=== PATIENT | male | born 1965 | race African-American/Black ===

== ENCOUNTER 2019-11-22 12:56 | Inpatient (IN) | payer OTHER ==
[2019-11-22] MEDS ORDERED: NS 0.9% 1000 ML** 1,000 ML IV ONE ×2 (15:12→18:53)
--- NOTE | 2019-11-22 15:13 | ED ---
GI/ HPI - HPI Summary HPI Summary: Patient from alf complains of right-sided abdominal pain 1 month. Abdominal pain described as constant, achy. Pain worse with eating certain foods , and worse in the middle the night. 4 episodes of vomiting yesterday. States no BM since starting iron supplements on Friday. Denies fever, cough, sore throat, CP, SOB, change in urine. Patient states they did labs at the alf clinic and sent him here for further evaluation of blood positive stool and low hemoglobin. Medical history is anemia, left BTK amputation. Ferrous Sulfate TAB* 325 mg PO BID 11/22/19 [History Confirmed 11/22/19] Omeprazole (Nf) [Prilosec (NF)] 40 mg PO DAILY 11/22/19 [History Confirmed 11/22] - History of Current Complaint Chief Complaint: EDGIBleed Time Seen by Provider: 11/22/19 15:07 Stated Complaint: BLOOD IN STOOL PER PT Hx Obtained From: Patient Onset/Duration: Started Weeks Ago Timing: Constant Severity: Moderate Current Severity: Moderate Pain Intensity: 7 Location of Pain: RUQ, RLQ Pain Characteristics: Dull, Cramping Associated Signs and Symptoms: Positive: Nausea, Vomiting, Black Tarry Stool, Blood w/Stool, Abdominal Pain - Allergy/Home Medications Allergies/Adverse Reactions: Allergies Allergy/AdvReac Type Severity Reaction Status Date / Time No Known Allergies Allergy Verified 11/22/19 13:16 Home Medications: Home Medications Ferrous Sulfate TAB* 325 mg PO BID 11/22/19 [History Confirmed 11/22/19] Omeprazole (Nf) [Prilosec (NF)] 40 mg PO DAILY 11/22/19 [History Confirmed 11/22] PMH/Surg Hx/FS Hx/Imm Hx Endocrine/Hematology History: Denies: Hx Anticoagulant Therapy Cardiovascular History: Denies: Hx Pacemaker/ICD Sensory History: Denies: Hx Eye Prosthesis Opthamlomology History: Denies: Hx Legally Blind EENT History: Denies: Hx Deafness Neurological History: Denies: Hx Dementia Infectious Disease History: No Infectious Disease History: Denies: Traveled Outside the [place] in Last 30 Days - Family History Known Family History: Positive: Non-Contributory - Social History Alcohol Use: None Substance Use Type: Reports: None Smoking Status (MU): Light Every Day Tobacco Smoker Review of Systems Constitutional: Negative Eyes: Negative ENT: Negative Cardiovascular: Negative Respiratory: Negative Positive: Abdominal Pain, Vomiting, Nausea Genitourinary: Negative Musculoskeletal: Negative Skin: Negative Neurological/Mental Status: Negative Psychological: Normal All Other Systems Reviewed And Are Negative: Yes Physical Exam - Summary Physical Exam Summary: Tender in epigastric, right upper quadrant and right lower quadrant. Abdominal exam otherwise unremarkable. Triage Information Reviewed: Yes Vital Signs On Initial Exam: Initial Vitals Temp Pulse Resp BP Pulse Ox 100.6 F 111 19 132/69 96 11/22/19 13:13 11/22/19 13:13 11/22/19 13:13 11/22/19 13:13 11/22/19 13:13 Vital Signs Reviewed: Yes Appearance: Positive: Well-Appearing Skin: Positive: Warm Head/Face: Positive: Normal Head/Face Inspection Eyes: Positive: Normal Neck: Positive: Supple Respiratory/Lung Sounds: Positive: Clear to Auscultation Cardiovascular: Positive: Normal Abdomen Description: Positive: Other: Musculoskeletal: Positive: Normal Neurological: Positive: Normal Psychiatric: Positive: Normal AVPU Assessment: Alert - [place] Coma Scale Best Eye Response: 4 - Spontaneous Best Motor Response: 6 - Obeys Commands Best Verbal Response: 5 - Oriented Coma Scale Total: 15 Procedures - Sedation Patient Received Moderate/Deep Sedation with Procedure: No Diagnostics - Vital Signs Vital Signs Temp Pulse Resp BP Pulse Ox 11/22/19 13:13 100.6 F 111 19 132/69 96 - Laboratory Result Diagrams: 11/23/19 05:23 11/23/19 05:23 Lab Statement: Any lab studies that have been ordered have been reviewed, and results considered in the medical decision making process. GIGU Course/Dx - Course Course Of Treatment: Patient from alf complains of right-sided abdominal pain 1 month. Abdominal pain described as constant, achy. Pain worse with eating certain foods, and worse in the middle the night. 4 episodes of vomiting yesterday. States no BM since starting iron supplements on Friday. Denies fever, cough, sore throat, CP, SOB, change in urine. Patient states they did labs at the alf clinic and sent him here for further evaluation of blood positive stool and low hemoglobin. Medical history is anemia, left BTK amputation. Temp 100.6 initially. Normal temperature on recheck. Mildly tachycardic. Vital signs otherwise within normal limits. WBC 23.4. Hemoglobin 7.8. CRP 276. Complete abdominal ultrasound on 11/19/[address] abdomen and pelvis today positive for masslike wall thickening and fat stranding involving the descending colon and cecum but sparing of the cecal tip, with region of masslike thickening measuring up to 4.1 cm thickness. Possibilities include proximal colonic malignancy versus nonspecific severe colitis. Prominent lymph nodes in the right lower quadrant suspicious for mesenteric adenitis. Patient admitted to hospitalist. - Diagnoses Provider Diagnoses: Anemia, Mass of colon, Sepsis, Abdominal pain, GI bleed Discharge ED - Sign-Out/Discharge Documenting (check all that apply): Patient Departure - Discharge Plan Condition: Stable Disposition: ADMITTED TO [facility] - Billing Disposition and Condition Condition: STABLE Disposition: Admitted to [facility] - Attestation Statements Provider Attestation: I have seen the patient with the DARREN and agree with the plan and documentation below except as noted: 54 y/o male p/w abdominal pain and rectal bleeding found to have a possible new mass vs colitis. Given zpsyn, needs GI consult. Lashanda Stroud MD
[2019-11-22] MEDS ORDERED: Ondansetron INJ* 2 MG/ML VIAL IV ONE ×2 (15:22→19:45)
[2019-11-22 16:01] LABS: INR 1.47 (0.82-1.09)
[2019-11-22 16:16] LABS: ABS Basophils 0.1 10^3/ul (0-0.2); ABS Eosinophils 0.1 10^3/ul (0-0.6); ABS Lymphocytes 2.1 10^3/ul (1.0-4.8); ABS Monocytes 1.1 10^3/ul (0-0.8); ABS Neutrophils 19.9 10^3/ul (1.5-7.7); Eosinophil % 0.5 %; Hematocrit 26 % (42-52); Hemoglobin 7.8 g/dL (14.0-18.0); Lymphocyte % 9.1 %; Mean Corpuscular HGB Conc 31 g/dL (31-36); Mean Corpuscular Hemoglobin 20 pg (27-31); Mean Corpuscular Volume 66 fL (80-94); Mean Platelet Volume 6.6 fL (7.4-10.4); Platelet Count 669 10^3/uL (150-450); Red Blood Count 3.86 10^6 /uL (4.18-5.48); Red Cell Distribution Width 16 % (10-15); White Blood Count 23.4 10^3/uL (3.5-10.8)
[2019-11-22 16:43] LABS: ALT 9 U/L (7-52); AST 10 U/L (13-39); Albumin 4.1 g/dL (3.2-5.2); Albumin/Globulin Ratio 1.1 (1-3); Alkaline Phosphatase 66 U/L (34-104); Anion Gap 10 mmol/L (2-11); BUN/Creatinine Ratio 13.6 (8-20); Blood Urea Nitrogen 15 mg/dL (6-24); C Reactive Protein 276.66 mg/L (<8.01); CO2 Carbon Dioxide 23 mmol/L (22-32); Calcium 9.4 mg/dL (8.6-10.3); Chloride 102 mmol/L (101-111); EGFR African American 84.7 (>60); Globulin 3.6 g/dL (2-4); Glucose 102 mg/dL (70-100); Potassium 3.7 mmol/L (3.5-5.0); Sodium 135 mmol/L (135-145); Total Protein 7.7 g/dL (6.4-8.9)
[2019-11-22] MEDS ORDERED: Iohexol 300* (CONTRAST) 10 ML SDV IV ONE (17:42)
[2019-11-22 17:52] LABS: Urine Appearance Clear; Urine Bilirubin Negative (Negative); Urine Blood Negative (Negative); Urine Color Yellow; Urine Glucose Negative (Negative); Urine Ketones Negative (Negative); Urine Nitrite Negative (Negative); Urine Protein Negative (Negative); Urine Specific Gravity 1.012 (1.010-1.030); Urine Urobilinogen Negative (Negative)
[2019-11-22] MEDS ORDERED: Piperacillin/Tazobactam VIAL*) 3.375 GM in NS 0.9% 100 ML* 100 ML IVPB ONE (18:51)
[2019-11-22] MEDS ORDERED: NS 0.9% 100 ML* 100 ML ONE (18:59)
[2019-11-22] MEDS ORDERED: ZOSYN 3.375 GM x ONE DOSE over 30 miuntes IVPB ×2 (19:05)
[2019-11-22] MEDS ORDERED: Ondansetron INJ* 2 MG/ML VIAL IV PRN (19:34)
[2019-11-22] MEDS ORDERED: PEG 3000 GI LAVAGE* 1 GALLON PO ONE ×2 (19:38→22:30)
[2019-11-22] MEDS ORDERED: Polyethylene Glycol 3350 BTL* 238 GM BTL PO ONE (19:38)
[2019-11-22] MEDS ORDERED: Morphine 4 MG/ML VIAL (1 ml) 4 MG/ML VIAL IV ONE (19:45)
[2019-11-22] MEDS ORDERED: Phytonadione Oral Solution* 5 MG/25 ML UDC PO ONE (19:48)
[2019-11-22] MEDS ORDERED: Zosyn per Pharmacy* NOTE FOLLOW UP SCH (20:00)
[2019-11-22] MEDS: NS 0.9% 1000 ML** 1,000 ML IV SCH (21:47)
[2019-11-22 22:02] LABS: Hematocrit 21 % (42-52); Hemoglobin 6.6 g/dL (14.0-18.0)
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
[2019-11-22] MEDS: ZOSYN 3.375 GM Q8H per EXTENDED INFUSION IVPB SCH ×2 (23:18)
[2019-11-22] MEDS: oxyCODONE TAB* 5 MG TAB PO PRN (23:22)
[2019-11-23 05:32] LABS: ABS Basophils 0.1 10^3/ul (0-0.2); ABS Eosinophils 0.3 10^3/ul (0-0.6); ABS Lymphocytes 2.4 10^3/ul (1.0-4.8); ABS Monocytes 1.5 10^3/ul (0-0.8); ABS Neutrophils 14.4 10^3/ul (1.5-7.7); Eosinophil % 1.5 %; Hematocrit 23 % (42-52); Lymphocyte % 12.8 %; Mean Corpuscular HGB Conc 31 g/dL (31-36); Mean Corpuscular Hemoglobin 21 pg (27-31); Mean Corpuscular Volume 68 fL (80-94); Mean Platelet Volume 6.3 fL (7.4-10.4); Platelet Count 596 10^3/uL (150-450); Red Blood Count 3.37 10^6 /uL (4.18-5.48); Red Cell Distribution Width 18 % (10-15); White Blood Count 18.7 10^3/uL (3.5-10.8)
[2019-11-23 05:34] LABS: INR 1.33 (0.82-1.09)
[2019-11-23 05:44] LABS: BUN/Creatinine Ratio 10.5 (8-20); EGFR African American 81.3 (>60); EGFR Non-African American 67.2 (>60); Magnesium 2.1 mg/dL (1.9-2.7)
[2019-11-23] MEDS: NS 0.9% 1000 ML** 1,000 ML IV SCH ×2 (07:58→20:38)
[2019-11-23] MEDS: ZOSYN 3.375 GM Q8H per EXTENDED INFUSION IVPB SCH ×4 (07:58→17:02)
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
[2019-11-23] MEDS: Pantoprazole TAB * 40 MG TAB PO SCH (08:22)
[2019-11-23] MEDS: oxyCODONE TAB* 5 MG TAB PO PRN ×2 (08:23→18:35)
[2019-11-23] MEDS ORDERED: PEG 3000 GI LAVAGE* 1 GALLON PO ONE (09:06)
[2019-11-23 12:37] LABS: Hematocrit 25 % (42-52); Hemoglobin 7.6 g/dL (14.0-18.0)
[2019-11-23] MEDS ORDERED: fentaNYL* 50 MCG/ML 2 ML VIAL (100 MCG VIAL) ONE (14:57)
[2019-11-23] MEDS ORDERED: Midazolam* 1 MG/ML 10 ML VIAL (10 MG) ONE (14:57)
[2019-11-23 18:34] LABS: Hematocrit 23 % (42-52); Hemoglobin 7.4 g/dL (14.0-18.0)
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
[2019-11-24] MEDS: ZOSYN 3.375 GM Q8H per EXTENDED INFUSION IVPB SCH ×8 (00:30→23:42)
[2019-11-24 01:23] LABS: Hematocrit 24 % (42-52); Hemoglobin 7.5 g/dL (14.0-18.0)
[2019-11-24] MEDS: Acetaminophen TAB* 325 MG PO PRN ×4 (01:26→23:41)
--- NOTE | 2019-11-24 03:00 | PRO ---
DATE: 11/23/19 - ROOM #431 REFERRING PHYSICIAN: Rashida Gutierrez; Ivis Johnson, JC, drug treatment * PROCEDURE: Colonoscopy to right colon and biopsy of ulcerated mass. INDICATION: This 54-year-old man has had abdominal pain and was found to be anemic. He was placed on iron a week or 2 ago. He has been obstipated. When he came to the emergency room, CT scan did not show obstruction; therefore, he was given doses of MiraLAX and they did have a laxative effect without vomiting , and thus, he was given more of a prep. He has stabilized in that his vital signs have been good and his temperature has normalized. Informed consent was obtained, discussion with the patient describing him moderate sedation and the priority of obtaining more information. ENDOSCOPIST: Dr. Bower. MEDICATIONS: Midazolam 6, fentanyl 62.5. FINDINGS: He is a fit-appearing middle-aged man, in no overt distress, lying supine. He has sternotomy scar and a left BKA. His abdomen has normal bowel sounds. He was tender on the right side, but there was no rigidity or surgical change. He was positioned left side down and moderate sedation induced. Perianal inspection and rectal are normal. Initial views show an excellent prep and normal mucosa. Scope passed easily to about 30 to 35 cm, and then with pressure on the mesentery, there was some discomfort felt by the patient. Additional doses were given. Gentle back and forth, to and fro advancement with tip deflection was used and eventually some transverse lift from the nurse. The right colon was reached and there was an ulcerated mass. There was dark staining of mucus and this was presumably due to iron intake. The lumen was narrowed. The scope could not pass down the lumen, but a clear ulcerated area circumferentially was seen. Multiple biopsies were taken trying to sample the rolled edge of the mass and some of the ulcerated surface. Nine specimens were obtained. On slow withdrawal, there were no additional findings. IMPRESSION: Right colon mass - 99% likely to be a malignancy, the only question being the tissue type. Addendum: poorly diff adenocarcinoma [id number]/[facility] #: [id number] MTDD
[2019-11-24] MEDS: oxyCODONE TAB* 5 MG TAB PO PRN ×2 (05:06→20:10)
[2019-11-24 06:24] LABS: Hematocrit 22 % (42-52); Hemoglobin 7.1 g/dL (14.0-18.0)
[2019-11-24] MEDS: NS 0.9% 1000 ML** 1,000 ML IV SCH (07:59)
[2019-11-24] MEDS: Pantoprazole TAB * 40 MG TAB PO SCH (08:05)
[2019-11-24 10:13] LABS: ABS Basophils 0.1 10^3/ul (0-0.2); ABS Eosinophils 0.4 10^3/ul (0-0.6); ABS Lymphocytes 2.1 10^3/ul (1.0-4.8); ABS Monocytes 0.9 10^3/ul (0-0.8); ABS Neutrophils 7.4 10^3/ul (1.5-7.7); Eosinophil % 3.8 %; Hematocrit 25 % (42-52); Hemoglobin 7.8 g/dL (14.0-18.0); Lymphocyte % 19.6 %; Mean Corpuscular HGB Conc 31 g/dL (31-36); Mean Corpuscular Hemoglobin 21 pg (27-31); Mean Corpuscular Volume 68 fL (80-94); Mean Platelet Volume 6.6 fL (7.4-10.4); Nucleated Red Blood Cells % 0.1; Platelet Count 681 10^3/uL (150-450); Red Blood Count 3.71 10^6 /uL (4.18-5.48); Red Cell Distribution Width 18 % (10-15); White Blood Count 10.8 10^3/uL (3.5-10.8)
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
[2019-11-24 11:34] LABS: % Iron Saturation 8 % (15-55); Iron < 20 ug/dL (50-212); Total Iron Binding Capacity 252 mcg/dL (250-450); Transferrin 180 mg/dL (203-362)
[2019-11-24 11:46] LABS: Carcinoembryonic Antigen 1.1 ng/mL (0.1-5.0)
[2019-11-24 11:53] LABS: Ferritin 46.1 ng/mL (24-336)
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
[2019-11-25 05:37] LABS: ABS Basophils 0.1 10^3/ul (0-0.2); ABS Eosinophils 0.4 10^3/ul (0-0.6); ABS Lymphocytes 2.4 10^3/ul (1.0-4.8); ABS Monocytes 0.6 10^3/ul (0-0.8); ABS Neutrophils 5.5 10^3/ul (1.5-7.7); Eosinophil % 4.7 %; Hematocrit 25 % (42-52); Hemoglobin 7.8 g/dL (14.0-18.0); Lymphocyte % 26.6 %; Mean Corpuscular HGB Conc 31 g/dL (31-36); Mean Corpuscular Hemoglobin 21 pg (27-31); Mean Corpuscular Volume 68 fL (80-94); Mean Platelet Volume 6.7 fL (7.4-10.4); Nucleated Red Blood Cells % 0.1; Platelet Count 656 10^3/uL (150-450); Red Blood Count 3.67 10^6 /uL (4.18-5.48); Red Cell Distribution Width 18 % (10-15); White Blood Count 9.1 10^3/uL (3.5-10.8)
[2019-11-25 06:39] LABS: Calcium 8.6 mg/dL (8.6-10.3); Potassium 3.7 mmol/L (3.5-5.0)
[2019-11-25 06:44] LABS: BUN/Creatinine Ratio 4.5 (8-20); EGFR African American 83.8 (>60); EGFR Non-African American 69.3 (>60)
[2019-11-25] MEDS: ZOSYN 3.375 GM Q8H per EXTENDED INFUSION IVPB SCH ×6 (08:24→23:05)
[2019-11-25] MEDS: Pantoprazole TAB * 40 MG TAB PO SCH (08:24)
--- NOTE | 2019-11-25 08:54 | CONSULT ---
Consult Consult: Patient seen and examined on 11/24/2019. DARREN note reviewed and I agree with. I discussed the case with the primary service. Greater than 3 month history of melena and intermittent abdominal pain. Workup since admission consistent with ascending colon cancer with inflammation , possible perforation. Pain relieved with narcotics. Patient is on Zosyn. Pathology pending. Abdomen : soft, nondistended, tender on the RIGHT with fullness. Small umbilical hernia. CT scan and colonoscopy reviewed. Impression: ascending colon cancer with possible perforation. Pathology pending, and likely consistent with adenocarcinoma. recommendation: Open RIGHT hemicolectomy. Continue clear fluids for now. will possibly not need bowel prep, but I do recommend oral antibiotics. Case was discussed my partner who will likely be doing it on Friday hopefully after pathology is resulted. I discussed all this with the patient who is comfortable with my examination and his questions were answered. Overall, 30 minutes were spent with patient, over half of which included going over our plan.
--- NOTE | 2019-11-25 09:22 | PN ---
Progress Note - Progress Note Date of Service: 11/25/19 SOAP: Subjective: Intermittent right sided abdominal pain CEA normal Labs c/w iron deficiency Pathology pending Objective: Alert and conversant Neuro grossly nonfocal Ice pack on abdomen Vital Signs - 8 hr 11/25/19 11/25/19 11/25/19 03:15 07:15 08:00 Temperature 97 F 98.7 F Pulse Rate 76 71 Respiratory 16 18 16 Rate Blood Pressure 113/73 111/74 (mmHg) O2 Sat by Pulse 99 98 Oximetry Laboratory Results - last 24 hr 11/24/19 11/24/19 11/25/19 05:54 09:42 05:12 WBC 10.8 9.1 RBC 3.71 L 3.67 L Hgb 7.8 L 7.8 L Hct 25 L 25 L MCV 68 L 68 L MCH 21 L 21 L MCHC 31 31 RDW 18 H 18 H Plt Count 681 H D 656 H MPV 6.6 L 6.7 L Neut % (Auto) 68.0 60.2 Lymph % (Auto) 19.6 26.6 [place] % (Auto) 7.9 7.0 Eos % (Auto) 3.8 4.7 Baso % (Auto) 0.7 1.5 Absolute Neuts (auto) 7.4 5.5 Absolute Lymphs (auto) 2.1 2.4 Absolute Monos (auto) 0.9 H 0.6 Absolute Eos (auto) 0.4 0.4 Absolute Basos (auto) 0.1 0.1 Absolute Nucleated RBC 0.0 0.0 Nucleated RBC % 0.1 0.1 Sodium Potassium Chloride Carbon Dioxide Anion Gap BUN Creatinine Est GFR ( Amer) Est GFR (Non-Af Amer) BUN/Creatinine Ratio Glucose Calcium Iron < 20 L TIBC 252 % Saturation 8 L Unsat Iron Binding < 237 Transferrin 180 L Ferritin 46.1 Carcinoembryonic Ag 1.1 11/25/19 05:12 WBC RBC Hgb Hct MCV MCH MCHC RDW Plt Count MPV Neut % (Auto) Lymph % (Auto) [place] % (Auto) Eos % (Auto) Baso % (Auto) Absolute Neuts (auto) Absolute Lymphs (auto) Absolute Monos (auto) Absolute Eos (auto) Absolute Basos (auto) Absolute Nucleated RBC Nucleated RBC % Sodium 139 Potassium 3.7 Chloride 107 Carbon Dioxide 24 Anion Gap 8 BUN 5 L Creatinine 1.11 Est GFR ( Amer) 83.8 Est GFR (Non-Af Amer) 69.3 BUN/Creatinine Ratio 4.5 L Glucose 96 Calcium 8.6 Iron TIBC % Saturation Unsat Iron Binding Transferrin Ferritin Carcinoembryonic Ag Intake and Output Last 24 Hours 11/23/19 11/24/19 11/25/19 11/26/19 06:59 06:59 06:59 06:59 Intake Total 3035 4631 1753 400 Output Total 0 2275 3250 600 Balance 3035 2356 -1497 -200 Weight 176 lb Intake: IV Fluids 2200 3091 593 ABX - AZITHROMYCIN 100 289 NS (0.9%) 2802 593 IVPB 521 200 ABX - ZOSYN 200 NS (0.9%) 521 Oral 0 1540 960 400 Packed Cells 314 Output: Urine 0 2275 3250 600 Other: Date of Last Bowel 11/23/2019 Movement # Voids 3 Acetaminophen (Tylenol Tab*) 650 mg PO Q6H PRN PRN Reason: MILD PAIN or TEMP > 100.4 Last Admin: 11/24/19 23:41 Dose: 650 mg Piperacillin Sod/Tazobactam (Sod 3.375 gm/ Sodium Chloride) 100 mls @ 25 mls/ hr IVPB Q8H [facility] Last Admin: 11/25/19 08:24 Dose: 25 mls/hr Metronidazole (Flagyl) 500 mg PO 1300,1400,2300 [facility] Stop: 11/25/19 23:01 Neomycin Sulfate (Neomycin Tab*) 1,000 mg PO 1300,1400,2300 [facility] Stop: 11/25/19 23:01 Ondansetron HCl (Zofran Inj*) 4 mg IV Q6H PRN PRN Reason: NAUSEA Oxycodone HCl (Roxycodone Tab*) 5 mg PO Q8H PRN PRN Reason: PAIN - SEVERE Last Admin: 11/24/19 20:10 Dose: 5 mg Pantoprazole Sodium (Protonix Tab*) 40 mg PO DAILY [facility] Last Admin: 11/25/19 08:24 Dose: 40 mg Pharmacy Consult (Zosyn Per Pharmacy*) 1 note FOLLOW UP .ZOSYN PER PHARMACY [facility] Assessment: Suspected right sided colon cancer Possible superimposed infection Iron deficiency anemia Abdominal pain secondary to #1 Plan: Await Pathology Surgery has evaluated Possible surgery tomorrow Will follow
[2019-11-25] MEDS: oxyCODONE TAB* 5 MG TAB PO PRN ×2 (11:01→20:56)
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
--- NOTE | 2019-11-25 12:15 | PN ---
Progress Note - Progress Note Date of Service: 11/25/19 Note: Subjective: Pt reports he is feeling well. No BM since bowel prep for colonoscopy. Denies nausea, emesis, fever, chills. Confirms right sided abdominal pain that he feels upon movement and palpation. Objective: Vital Signs - 8 hr 11/25/19 11/25/19 11/25/19 07:15 08:00 11:01 Temperature 98.7 F Pulse Rate 71 Respiratory 18 16 18 Rate Blood Pressure 111/74 (mmHg) O2 Sat by Pulse 98 Oximetry 11/25/19 11:15 Temperature 98.7 F Pulse Rate 78 Respiratory 18 Rate Blood Pressure 115/71 (mmHg) O2 Sat by Pulse 100 Oximetry Intake and Output Last 24 Hours 11/23/19 11/24/19 11/25/19 11/26/19 06:59 06:59 06:59 06:59 Intake Total 3035 4631 1753 400 Output Total 0 2275 3250 600 Balance 3035 2356 -1497 -200 Weight 176 lb Intake: IV Fluids 2200 3091 593 ABX - AZITHROMYCIN 100 289 NS (0.9%) 2802 593 IVPB 521 200 ABX - ZOSYN 200 NS (0.9%) 521 Oral 0 1540 960 400 Packed Cells 314 Output: Urine 0 2275 3250 600 Other: Date of Last Bowel 11/23/2019 Movement # Voids 3 Laboratory Last Values WBC 9.1 10^3/uL (3.5-10.8) 11/25/19 05:12 RBC 3.67 10^6 /uL (4.18-5.48) L 11/25/19 05:12 Hgb 7.8 g/dL (14.0-18.0) L 11/25/19 05:12 Hct 25 % (42-52) L 11/25/19 05:12 MCV 68 fL (80-94) L 11/25/19 05:12 MCH 21 pg (27-31) L 11/25/19 05:12 MCHC 31 g/dL (31-36) 11/25/19 05:12 RDW 18 % (10-15) H 11/25/19 05:12 Plt Count 656 10^3/uL (150-450) H 11/25/19 05:12 MPV 6.7 fL (7.4-10.4) L 11/25/19 05:12 Neut % (Auto) 60.2 % 11/25/19 05:12 Lymph % (Auto) 26.6 % 11/25/19 05:12 [place] % (Auto) 7.0 % 11/25/19 05:12 Eos % (Auto) 4.7 % 11/25/19 05:12 Baso % (Auto) 1.5 % 11/25/19 05:12 Absolute Neuts (auto) 5.5 10^3/ul (1.5-7.7) 11/25/19 05:12 Absolute Lymphs (auto) 2.4 10^3/ul (1.0-4.8) 11/25/19 05:12 Absolute Monos (auto) 0.6 10^3/ul (0-0.8) 11/25/19 05:12 Absolute Eos (auto) 0.4 10^3/ul (0-0.6) 11/25/19 05:12 Absolute Basos (auto) 0.1 10^3/ul (0-0.2) 11/25/19 05:12 Absolute Nucleated RBC 0.0 10^3/ul 11/25/19 05:12 Nucleated RBC % 0.1 11/25/19 05:12 Hem Pathologist Commnt 11/22/19 15:46 INR (Anticoag Therapy) 1.33 (0.82-1.09) H 11/23/19 05:23 Sodium 139 mmol/L (135-145) 11/25/19 05:12 Potassium 3.7 mmol/L (3.5-5.0) 11/25/19 05:12 Chloride 107 mmol/L (101-111) 11/25/19 05:12 Carbon Dioxide 24 mmol/L (22-32) 11/25/19 05:12 Anion Gap 8 mmol/L (2-11) 11/25/19 05:12 BUN 5 mg/dL (6-24) L 11/25/19 05:12 Creatinine 1.11 mg/dL (0.67-1.17) 11/25/19 05:12 Est GFR ( Amer) 83.8 (>60) 11/25/19 05:12 Est GFR (Non-Af Amer) 69.3 (>60) 11/25/19 05:12 BUN/Creatinine Ratio 4.5 (8-20) L 11/25/19 05:12 Glucose 96 mg/dL (70-100) 11/25/19 05:12 Lactic Acid 1.5 mmol/L (0.5-2.0) 11/22/19 15:46 Calcium 8.6 mg/dL (8.6-10.3) 11/25/19 05:12 Magnesium 2.1 mg/dL (1.9-2.7) 11/23/19 05:23 Iron < 20 ug/dL (50-212) L 11/24/19 05:54 TIBC 252 mcg/dL (250-450) 11/24/19 05:54 % Saturation 8 % (15-55) L 11/24/19 05:54 Unsat Iron Binding < 237 ug/dL 11/24/19 05:54 Transferrin 180 mg/dL (203-362) L 11/24/19 05:54 Ferritin 46.1 ng/mL (24-336) 11/24/19 05:54 Total Bilirubin 0.50 mg/dL (0.2-1.0) 11/22/19 15:46 AST 10 U/L (13-39) L 11/22/19 15:46 ALT 9 U/L (7-52) 11/22/19 15:46 Alkaline Phosphatase 66 U/L (34-104) 11/22/19 15:46 C-Reactive Protein 276.66 mg/L (<8.01) H 11/22/19 15:46 Total Protein 7.7 g/dL (6.4-8.9) 11/22/19 15:46 Albumin 4.1 g/dL (3.2-5.2) 11/22/19 15:46 Globulin 3.6 g/dL (2-4) 11/22/19 15:46 Albumin/Globulin Ratio 1.1 (1-3) 11/22/19 15:46 Lipase < 10 U/L (11.0-82.0) L 11/22/19 15:46 Carcinoembryonic Ag 1.1 ng/mL (0.1-5.0) 11/24/19 05:54 Urine Color Yellow 11/22/19 17:26 Urine Appearance Clear 11/22/19 17:26 Urine pH 5.0 (5-9) 11/22/19 17:26 Ur Specific [place] 1.012 (1.010-1.030) 11/22/19 17: Urine Protein Negative (Negative) 11/22/19 17: Urine Ketones Negative (Negative) 11/22/19 17: Urine Blood Negative (Negative) 11/22/19 17: Urine Nitrate Negative (Negative) 11/22/19 17: Urine Bilirubin Negative (Negative) 11/22/19 17: Urine Urobilinogen Negative (Negative) 11/22/19 17: Ur Leukocyte Esterase Negative (Negative) 11/22/19 17: Urine Glucose Negative (Negative) 11/22/19: Blood Type O Positive 11/23/19 00:51 Antibody Screen Negative 11/23/19 00:51 Crossmatch See Detail 11/23/19 00:51 PEX General: Alert, in NAD. Integumentary: No rashes, jaundice. HEENT: PERRLA. Oropharynx clear. Heart: RRR, no MRG. Lungs: CTAB, no WRR. ABD: BS present. Soft, nondistended. Tender on right with guarding. No rebound tenderness. Extremities: Left BKA. R calf soft and nontender. No edema. Assessment and plan: 54 yo M with history of abdominal pain and melena with colon mass. Tentative plan is an ex lap tomorrow, probable colon resection. (). NPO at midnight.
[2019-11-25] MEDS: Neomycin TAB* 500 MG PO SCH ×3 (12:54→23:05)
[2019-11-25] MEDS: Acetaminophen TAB* 325 MG PO PRN ×2 (12:55→23:12)
[2019-11-25] MEDS: metroNIDAZOLE * 500 MG TABLET PO SCH ×3 (12:55→23:05)
[2019-11-25] MEDS ORDERED: PEG 3000 GI LAVAGE* 1 GALLON PO ONE (15:27)
[2019-11-26] MEDS: oxyCODONE TAB* 5 MG TAB PO PRN ×3 (05:39→22:45)
[2019-11-26 07:43] LABS: ABS Basophils 0.2 10^3/ul (0-0.2); ABS Eosinophils 0.4 10^3/ul (0-0.6); ABS Lymphocytes 2.4 10^3/ul (1.0-4.8); ABS Monocytes 0.7 10^3/ul (0-0.8); ABS Neutrophils 4.6 10^3/ul (1.5-7.7); Eosinophil % 5.3 %; Hematocrit 25 % (42-52); Hemoglobin 7.9 g/dL (14.0-18.0); Lymphocyte % 28.7 %; Mean Corpuscular HGB Conc 32 g/dL (31-36); Mean Corpuscular Hemoglobin 22 pg (27-31); Mean Corpuscular Volume 68 fL (80-94); Mean Platelet Volume 6.7 fL (7.4-10.4); Platelet Count 700 10^3/uL (150-450); Red Blood Count 3.69 10^6 /uL (4.18-5.48); Red Cell Distribution Width 19 % (10-15); White Blood Count 8.2 10^3/uL (3.5-10.8)
[2019-11-26] MEDS: Acetaminophen TAB* 325 MG PO PRN ×2 (07:52→19:10)
[2019-11-26] MEDS: ZOSYN 3.375 GM Q8H per EXTENDED INFUSION IVPB SCH ×2 (07:53)
[2019-11-26] MEDS: Pantoprazole TAB * 40 MG TAB PO SCH (08:37)
[2019-11-26 08:57] LABS: Calcium 8.3 mg/dL (8.6-10.3); Potassium 4.5 mmol/L (3.5-5.0)
[2019-11-26 09:03] LABS: BUN/Creatinine Ratio 3.9 (8-20); EGFR African American 70.5 (>60); EGFR Non-African American 58.3 (>60)
--- NOTE | 2019-11-26 09:12 | PN ---
Progress Note - Progress Note Date of Service: 11/26/19 SOAP: Subjective: Pathology returned adenocarcinoma possible MSI For right hemicolectomy today Objective: Alert and oriented Neuro grossly nonfocal PERRLA Neck supple Vital Signs - 8 hr 11/26/19 11/26/19 11/26/19 03:15 05:39 07:15 Temperature 98.1 F 98 F Pulse Rate 53 69 Respiratory 14 16 18 Rate Blood Pressure 96/57 102/67 (mmHg) O2 Sat by Pulse 98 96 Oximetry Laboratory Results - last 24 hr 11/26/19 11/26/19 06:23 06:23 WBC 8.2 RBC 3.69 L Hgb 7.9 L Hct 25 L MCV 68 L MCH 22 L MCHC 32 RDW 19 H Plt Count 700 H MPV 6.7 L Neut % (Auto) 55.3 Lymph % (Auto) 28.7 [place] % (Auto) 8.3 Eos % (Auto) 5.3 Baso % (Auto) 2.4 Absolute Neuts (auto) 4.6 Absolute Lymphs (auto) 2.4 Absolute Monos (auto) 0.7 Absolute Eos (auto) 0.4 Absolute Basos (auto) 0.2 Absolute Nucleated RBC 0.0 Nucleated RBC % 0.0 Sodium 139 Potassium 4.5 Chloride 107 Carbon Dioxide 23 Anion Gap 9 BUN 5 L Creatinine 1.29 H Est GFR ( Amer) 70.5 Est GFR (Non-Af Amer) 58.3 BUN/Creatinine Ratio 3.9 L Glucose 78 Calcium 8.3 L Magnesium 2.0 Intake and Output Last 24 Hours 11/24/19 11/25/19 11/26/19 11/27/19 06:59 06:59 06:59 06:59 Intake Total 4631 1753 1850 Output Total 2275 3250 2100 Balance 2356 -1497 -250 Intake: IV Fluids 3091 593 ABX - AZITHROMYCIN 289 NS (0.9%) 2802 593 IVPB 200 310 ABX - ZOSYN 200 310 Oral 4344 532 0943 Output: Urine 2275 3250 2100 Other: Date of Last Bowel 11/23/2019 Movement # Voids 3 Acetaminophen (Tylenol Tab*) 650 mg PO Q6H PRN PRN Reason: MILD PAIN or TEMP > 100.4 Last Admin: 11/26/19 07:52 Dose: 650 mg Piperacillin Sod/Tazobactam (Sod 3.375 gm/ Sodium Chloride) 100 mls @ 25 mls/ hr IVPB Q8H [facility] Last Admin: 11/26/19 07:53 Dose: 25 mls/hr Ondansetron HCl (Zofran Inj*) 4 mg IV Q6H PRN PRN Reason: NAUSEA Last Admin: 11/25/19 14:47 Dose: 4 mg Oxycodone HCl (Roxycodone Tab*) 5 mg PO Q8H PRN PRN Reason: PAIN - SEVERE Last Admin: 11/26/19 05:39 Dose: 5 mg Pantoprazole Sodium (Protonix Tab*) 40 mg PO DAILY [facility] Last Admin: 11/26/19 08:37 Dose: 40 mg Pharmacy Consult (Zosyn Per Pharmacy*) 1 note FOLLOW UP .ZOSYN PER PHARMACY [facility] Assessment: Right colon adenocarcinoma, possible MSI GERALD and Gastrointestinal blood loss Plan: For surgery Will followup surgery to define need for future additional imaging and adjuvant therapy
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
[2019-11-26] MEDS ORDERED: Ondansetron INJ* 2 MG/ML VIAL IV ONE (12:14)
[2019-11-26] MEDS ORDERED: Dexamethasone IV* 4 MG/ML 1 ML (4 MG) IV SLOW PU ONE (12:14)
[2019-11-26] MEDS ORDERED: Buffered Lidocaine 1% SYRIN* 1 ML/SYRINGE INTRADERM ONE (12:14)
[2019-11-26] MEDS ORDERED: Lactated Ringers 1000 ML Bag* 1,000 ML IV SCH (13:00)
[2019-11-26] MEDS ORDERED: Perflutren Lipid Microsphere* 3 ML VIAL ONE (14:01)
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
[2019-11-26] MEDS: ZOSYN 3.375 GM IVPB SCH ×2 (15:34)
--- NOTE | 2019-11-26 17:55 | PN ---
Progress Note - Progress Note Date of Service: 11/26/19 SOAP: Subjective: Pt seen and clear from below. No complaints. pos appetite Objective: Temp Pulse Resp BP Pulse Ox 98.7 F 67 18 99/64 96 11/26/19 15:15 11/26/19 15:15 11/26/19 15:34 11/26/19 15:15 11/26/19 15:15 abdo: soft/ ND/ less tender path reviewed with pt Assessment: colon cancer Plan: OR tomorrow for open right colectomy. postponed and pt aware
[2019-11-27] MEDS: ZOSYN 3.375 GM IVPB SCH ×8 (00:24→20:22)
[2019-11-27] MEDS: Acetaminophen TAB* 325 MG PO PRN (05:04)
[2019-11-27] MEDS ORDERED: fentaNYL* 50 MCG/ML 2 ML VIAL (100 MCG VIAL) ONE (07:34)
[2019-11-27] MEDS ORDERED: Midazolam* 1 MG/ML 2 ML VIAL (2 MG) ONE ×2 (07:34→08:47)
[2019-11-27] MEDS ORDERED: Rocuronium* 10 MG/ML VIAL ONE ×2 (07:34→09:43)
[2019-11-27] MEDS ORDERED: Lidocaine 2% PF* 10 ML AMP ONE ×2 (08:55)
[2019-11-27] MEDS ORDERED: Ertapenem* 1 GM in NS 0.9% 50 ML* 50 ML IVPB ONE (09:00)
[2019-11-27] MEDS ORDERED: Naloxone* 0.4 MG/ML 1 ML VIAL IV PRN ×2 (09:35→11:10)
[2019-11-27] MEDS ORDERED: oxyCODONE TAB* 5 MG TAB PO PRN (09:35)
[2019-11-27] MEDS ORDERED: Ondansetron INJ* 2 MG/ML VIAL IV PRN (09:35)
[2019-11-27] MEDS ORDERED: HYDROmorphone INJ* 0.5 MG/0.5 ML SYRINGE IV SLOW PU PRN (09:46)
[2019-11-27] MEDS ORDERED: DiMENhydriNATE IV* 50 MG/ML VIAL IV PUSH PRN (11:10)
[2019-11-27] MEDS ORDERED: Bupivacaine 0.5% SDV PF* 30ML VIAL ONE (11:26)
[2019-11-27] MEDS ORDERED: Ketorolac INJ* 30 MG/ML 1 ML VIAL ONE (11:55)
[2019-11-27] MEDS ORDERED: Metoclopramide IV* 5 MG/ML 2 ML VIAL ONE (11:55)
[2019-11-27] MEDS ORDERED: Sugammadex * 200 MG/2 ML VIAL IV PUSH ONE (11:55)
[2019-11-27] MEDS ORDERED: Dexamethasone IV* 4 MG/ML 1 ML (4 MG) ONE (11:55)
[2019-11-27] MEDS ORDERED: Acetaminophen IV 1GM/100ML * 100 ML ONE (11:55)
[2019-11-27] MEDS ORDERED: Ondansetron INJ* 2 MG/ML VIAL ONE ×2 (11:55→14:06)
[2019-11-27] MEDS ORDERED: Phenylephrine 40 MCG/ML SYRINGE ONE (12:07)
[2019-11-27] MEDS ORDERED: Lactated Ringers 1000 ML Bag* 1,000 ML IV SCH (12:25)
--- NOTE | 2019-11-27 12:25 | OP ---
Operative Report - Blank - Operative Report Date of Operation: 11/27/19 Note: Pre-OP Diagnoses: Colon cancer Post-op Diagnosis: perforated colon cancer Procedure: Open Right colectomy Surgeon: Maria Isabel Espinot: Shara Anethesia: GETA, epidural Luke EBL: 100cc IVF: 2000cc LR U/O robert 1000cc Specimen: R Colon Drains: #10 SHAN
[2019-11-27] MEDS ORDERED: Bupivacaine 0.25% SDV PF* 10 ML VIAL INJ ONE (12:35)
[2019-11-27] MEDS ORDERED: Naloxone* 0.4 MG/ML 1 ML VIAL IV PUSH PRN (12:45)
[2019-11-27] MEDS ORDERED: Morphine PCA ADULT* 5 MG/ML 30 ML PCA SCH (13:00)
[2019-11-27] MEDS ORDERED: EPHEDrine (Pressors)* 50 MG/ML VIAL ONE (13:05)
--- NOTE | 2019-11-27 14:45 | OP ---
AMENDED REPORT NOW INCLUDES DATE OF OPERATION - ESIGNED BEFORE ADJUSTMENTS * CC: [facility]; Primary Care Doctor; STORM; Dr. Wilmar Bower * DATE OF OPERATION: 11/27/2019 DATE OF : 1965 SURGEON: Chandana Nicolas MD CAGE/VAULT SUPERVISOR: ROLLY Dawn ANESTHESIOLOGIST: Dr. Butler. ANESTHESIA: General anesthesia and epidural. PRE-OP DIAGNOSIS: Colon cancer. POST-OP DIAGNOSIS: Perforated colon cancer. ESTIMATED BLOOD LOSS: 100 cc. FLUIDS: Crystalloid fluid given 2 L. CATHETER/DRAIN: Tyler catheter inserted with 1 L of output and a #10 SHAN drain. SPECIMEN: Right colon. COMPLICATIONS: None. DISPOSITION: The patient extubated, transferred to the PACU. INDICATIONS: Mr. Bowles is a 54-year-old gentleman who was worked up after arriving to the hospital with a diagnosis of colon cancer. I outlined the details of procedure, going over the risks, benefits, and alternatives to a right hemicolectomy as I described to him. This lesion was quite large and I did not even entertain a laparoscopic approach. I outlined the details of the procedure and the patient agreed. I discussed the possible complications which included, but not limited to bleeding, infection, leak, need for return to the OR, possible need for ileostomy at the time of surgery or afterwards, the likelihood of stage IV cancer and the likely need for chemotherapy going forward. The patient's questions were answered. DESCRIPTION OF PROCEDURE: He was marked in the preoperative area. Consent was signed. He was taken to the operating room and placed on the operating table in supine position. Preoperative antibiotics were given. Sequential devices were placed on bilateral lower extremities. Epidural catheter had been inserted earlier and then a general anesthesia was induced. A Tyler was placed. The patient's abdomen was prepped and draped in standard surgical fashion and a time-out was performed. A transverse incision was made just above the umbilicus and extending it towards the right lateral side. This was deepened down through all the muscle layers and entry into the abdominal cavity was made. There was no free fluid. The small bowel appeared normal. There was a large mass in the right side. The abdomen was evaluated. The liver was addressed and there were no palpable lesions. The sigmoid colon was soft and intact without evidence of lesion as was the descending colon and transverse colon. Attention was then turned towards the terminal ileum. This was grasped and retracted upward. It would hardly move. We identified an appendix and took it off the lateral attachments and then with traction on the appendix, we identified the lateral gutter. We incised the white line of Toldt with cautery and noted that there was woodiness at the mid ascending colon. At this point, I came off of white line and went towards the sidewall into the extraperitoneal space and then extended this superiorly up towards the hepatic flexure. With traction of the cecum anteriorly and towards the midline, dissection was carried down in the plane to expose the lateral aspect of the ascending colon. This again was firm and difficult to move with notable inflammatory changes in the peritoneum. It was at this point we entered into an abscess cavity. A small amount of pus was suctioned out. I did not culture it. This allowed us to peel some of the colon away from the retroperitoneum. Inferiorly, the ureter was identified and maintained safely. Superior to this, however, was the inflammatory mass and we entered this inflammatory plane at the mid ascending colon posteriorly. It was at this point that I entered into an area where stool exited and it was clear that this was perforated colon cancer. We were able to debride some of the cavity posteriorly and included it as specimen. the hole in the colon was oversewn with 2-0 silk suture. This did allow us to now extend our dissection towards the hepatic flexure and to normal appearing planes. Next, our attention was turned towards the transverse colon. Omentum was released from the transverse colon at the mid portion and we extended this towards the hepatic flexure. The proximal transverse colon was pulled into the lesion and we just allowed this to stay in that site and just continued along the superior aspect of the proximal transverse colon taking the omentum with cautery and using LigaSure device when needed. We identified the duodenum and brushed this off of the transverse mesentery as it was pulled into this area. This was done with sharp dissection and once we allowed to drop the duodenum down, we can continue our dissection to completely take the hepatic flexure down. Once the hepatic flexure was down, we had our lesion up and out and we could identify we were on the small bowel and large bowel we wanted to make our anastomosis. We transected the small bowel at the distal ileum with 80-mm ROSEANNA stapling device, and at the distal transverse colon with a similar 80-mm ROSEANNA stapling device. The mesocolon was then taken with LigaSure device staying proximal on the pedicle where we identified two palpable lymph nodes. We then passed the specimen off and changed our gloves and attended the right gutter where the inflammatory changes were. We irrigated copiously and looked in a site. There certainly was not any additional colon, but only abscess wall of inflammed retroperitoneum. This was debrided. Hemostasis was excellent. Again, the duodenum was protected throughout and again identified at this site. Next, the anastomosis was created bringing the small bowel in apposition to the colon. An 80-mm ROSEANNA stapling device fired after making colotomy and enterotomy and the common defect was closed with a TA 90 3.5-mm stapling device. The staple line was oversewn with interrupted 3-0 silk sutures and the mesenteric defect was closed with a running 2-0 Vicryl suture. Again, hemostasis was excellent. The anastomosis was patent. There were no serosal injuries. The bowel was viable. Next, we again irrigated the abdomen. A #10 SHAN drain was brought in through a separate stab incision and dropped into the inflammatory area above the retroperitoneum on the right. We then sutured this to the skin with a 3-0 Prolene suture. Next, the incision was closed in a 2-layer fashion closing first the oblique laterally and extending this to the posterior fascia with running #1 Vicryl sutures. The anterior fascia was reapproximated with running #1 loop PDS sutures and tying them in the middle. The wound was then irrigated and skin edges were reapproximated with skin jose followed by sterile dressing. [id number]/[facility] #: [id number] MAJOR
[2019-11-27] MEDS: Pantoprazole TAB * 40 MG TAB PO SCH (14:49)
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
[2019-11-27 18:30] LABS: Urine Appearance Clear; Urine Bilirubin Negative (Negative); Urine Blood Negative (Negative); Urine Color Yellow; Urine Glucose Negative (Negative); Urine Ketones Negative (Negative); Urine Nitrite Negative (Negative); Urine Protein Negative (Negative); Urine Specific Gravity 1.012 (1.010-1.030); Urine Urobilinogen Negative (Negative)
[2019-11-27 19:31] LABS: Albumin 3.4 g/dL (3.2-5.2); Albumin/Globulin Ratio 1.1 (1-3); BUN/Creatinine Ratio 6.1 (8-20); Calcium 8.5 mg/dL (8.6-10.3); EGFR African American 81.3 (>60); EGFR Non-African American 67.2 (>60); Total Bilirubin 0.3 mg/dL (0.2-1.0); Total Protein 6.4 g/dL (6.4-8.9)
[2019-11-27 19:36] LABS: ABS Basophils 0.1 10^3/ul (0-0.2); ABS Lymphocytes 0.6 10^3/ul (1.0-4.8); ABS Monocytes 0.4 10^3/ul (0-0.8); ABS Neutrophils 16.5 10^3/ul (1.5-7.7); Hematocrit 25 % (42-52); Lymphocyte % 3.3 %; Mean Corpuscular HGB Conc 32 g/dL (31-36); Mean Corpuscular Hemoglobin 21 pg (27-31); Mean Corpuscular Volume 67 fL (80-94); Mean Platelet Volume 6.5 fL (7.4-10.4); Platelet Count 669 10^3/uL (150-450); Red Blood Count 3.75 10^6 /uL (4.18-5.48); Red Cell Distribution Width 19 % (10-15); White Blood Count 17.6 10^3/uL (3.5-10.8)
[2019-11-27 19:39] LABS: Activated Partial Thrombo Time 25.5 seconds (26.0-38.0); INR 1.39 (0.82-1.09)
[2019-11-27] MEDS: Lactated Ringers 1000 ML Bag* 1,000 ML IV SCH (20:26)
[2019-11-28] MEDS: ZOSYN 3.375 GM IVPB SCH ×8 (01:54→21:08)
[2019-11-28] MEDS: Lactated Ringers 1000 ML Bag* 1,000 ML IV SCH ×3 (04:13→21:06)
[2019-11-28 05:39] LABS: ABS Neutrophils 12.5 10^3/ul (1.5-7.7); Eosinophil % 0.1 %; Hematocrit 22 % (42-52); Hemoglobin 6.8 g/dL (14.0-18.0); Mean Corpuscular HGB Conc 31 g/dL (31-36); Mean Corpuscular Hemoglobin 21 pg (27-31); Mean Corpuscular Volume 67 fL (80-94); Mean Platelet Volume 6.8 fL (7.4-10.4); Platelet Count 580 10^3/uL (150-450); Red Cell Distribution Width 19 % (10-15); White Blood Count 15.5 10^3/uL (3.5-10.8)
[2019-11-28 05:50] LABS: Calcium 8.1 mg/dL (8.6-10.3); EGFR African American 79.7 (>60); EGFR Non-African American 65.9 (>60); Potassium 3.6 mmol/L (3.5-5.0)
[2019-11-28] MEDS: Heparin VIAL(*) 5000 UNITS/ML VIAL (FIVE THOUSAND) SUBCUT SCH ×3 (07:29→21:26)
--- NOTE | 2019-11-28 09:43 | CONSULT ---
Consult Consult: 54yo gentleman POD #1 s/p colectomy and TEP placement. HPI : Good coverage by the epidural as evidenced by no requirement for additional pain medication. BP in the high 90's systolic. Given 500cc bolus LR last night after hich the SBP was in the low 100s. Getting infused pRBC currently for Hct of 22 which should help with his BP. He got up and took a few laps around the unit last night. No c/o leg weakness. V/S @ 8:16 : BP 98/61, HR 96, RR18, O2 sat 100, 99 deg F. ROS : Denies any c/o pain. PE : Neuro - cognitively in tact. awake, alert, oriented. 5/5 muscle strength in right extremity. 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 Non tender. A/P : 54 yo gentleman POD #1 s/p colectomy and TEP. The infusion rate has been turned down to 8mL/hr from 10 and he is being infused with pRBCs. Hopefully both of these treatments will increase his BP. He is currently not sympotomatic of low BP. He is able to walk the halls without feeling dizzy and is mentating fine. It is a balance between maintaining the pain and sympathctomy benefit of the TEP vs BP control and not wanting to bolus too much in the setting of recent bowel anastamosis. Dr. Nicolas and I will be in touch whether or not we should adjust the epidural or give more boluses. I am okay with a BP in the 90s so long as he is not symptomatic - most importantly I do not want him to feel dizzy and fall. If he were to be symptomatic please give me a call. Thank you for ivolving me in the care of this patient. - Jie Butler DO Anesthesiologist @ [facility]
[2019-11-28] MEDS: Pantoprazole TAB * 40 MG TAB PO SCH ×2 (09:53→10:32)
--- NOTE | 2019-11-28 11:12 | PN ---
Progress Note - Progress Note Date of Service: 11/28/19 SOAP: Subjective: Pt seen and examined. Feeling well. No flatus. OOB yesterday. currently getting 1 pRBC Objective: Temp Pulse Resp BP Pulse Ox 99.0 F 85 16 100/60 100 11/28/19 09:30 11/28/19 09:30 11/28/19 09:30 11/28/19 09:30 11/28/19 09:30 Intake & Output 11/27/19 11/28/19 11/28/19 22:59 06:59 14:59 Intake Total 300 1454 569 Output Total 70 1430 Balance 230 24 569 a and o x3, nad lungs clear abdo; soft/ distended/ NT minimal BS dressing intact SHAN: serous ext wnl labs noted Assessment: POD 1 r hemicolectomy- perforated cancer Plan: IVF abx d/c robert, strict I Os ice chips f/u path
[2019-11-28] MEDS: OBEPIDURAL* 250 ML EPIDURAL SCH (13:51)
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
[2019-11-28] MEDS: Ketorolac INJ* 15 MG/ML 1 ML VIAL IV PRN (17:47)
[2019-11-29] MEDS: Ketorolac INJ* 15 MG/ML 1 ML VIAL IV PRN (02:06)
[2019-11-29] MEDS: ZOSYN 3.375 GM IVPB SCH ×8 (02:09→20:28)
[2019-11-29] MEDS: Heparin VIAL(*) 5000 UNITS/ML VIAL (FIVE THOUSAND) SUBCUT SCH ×3 (05:04→21:49)
[2019-11-29 05:19] LABS: ABS Basophils 0.2 10^3/ul (0-0.2); ABS Eosinophils 0.1 10^3/ul (0-0.6); ABS Monocytes 0.6 10^3/ul (0-0.8); ABS Neutrophils 8.4 10^3/ul (1.5-7.7); Hematocrit 22 % (42-52); Hemoglobin 6.9 g/dL (14.0-18.0); Lymphocyte % 17.9 %; Mean Corpuscular HGB Conc 32 g/dL (31-36); Mean Corpuscular Hemoglobin 22 pg (27-31); Mean Corpuscular Volume 69 fL (80-94); Mean Platelet Volume 6.6 fL (7.4-10.4); Platelet Count 501 10^3/uL (150-450); Red Blood Count 3.13 10^6 /uL (4.18-5.48); Red Cell Distribution Width 22 % (10-15); White Blood Count 11.3 10^3/uL (3.5-10.8)
[2019-11-29 05:35] LABS: BUN/Creatinine Ratio 5.8 (8-20); Calcium 7.8 mg/dL (8.6-10.3); EGFR African American 76.6 (>60); EGFR Non-African American 63.3 (>60); Magnesium 1.7 mg/dL (1.9-2.7); Potassium 3.8 mmol/L (3.5-5.0)
[2019-11-29] MEDS: Lactated Ringers 1000 ML Bag* 1,000 ML IV SCH ×3 (06:17→23:45)
--- NOTE | 2019-11-29 08:44 | CONSULT ---
Consult Consult: 54 yo gentleman POD #2 s/p colectomy and thoracic epidural placement for post- op pain control. HPI : Pt has had a persistantly low H&H. In the posst op setting, he was transfused one unit yesterday and one unit today. His TEP is still running at 8mL/hr. The pt endorses feeling "slightly sore in his belly" but the pain is tolerable. He got up and walked multiple laps yesterday. He denies any dizziness or weakness in his legs, feelings of lethargy. He did pass multiple BMs and is being started on po. He is awake, interactive and excited about getting ice cream. ROS : see above. VS: T 98.6, P86, R16, O2 sat 96, BP 110/65 @ 8:08 PE : Neuro - 5/5 strength in RLE (LLE is s/p BKA). AAAx3 MS - epidural insertion site in non-erythematus, no evidence of purulence, and non tender. A/P: 54 yo gentleman POD #2 s/p colectomy and thoracic epidural placement for post- op pain control. I am okay continuing the epidural or another day to make sure that he is tolerating po medications well. There is tylenol po ordered, I have asked that the nurse give that for his c/o mild pain. I will make sure that there are no NSAIDs ordered in the setting of a low Hct. Tomorrow morning I will ask that the RN give him po pain meds and at the same time stop the epidural and hold any SQ heparin. The pain meds should kick in by the time that the epidural wears off. If he is tolerating the pain, I will go ahead and pull the epidural. I will call the evening nurse to make sure that they are aware of the plan so that the SQ heparin and oxycodone can be given in the AM before change of shift on 11/29. However, if Dr. Nicolas would like me to keep the epidural going for another day, I will do the above plan on 11/30 instead of 11/29. Thank you for involving me in this patient's care. - Jie Butler DO Anesthesiologist @ [facility] [place]
[2019-11-29] MEDS ORDERED: Pantoprazole IV* 40 MG IV SCH (10:00)
--- NOTE | 2019-11-29 10:27 | PN ---
Progress Note - Progress Note Date of Service: 11/29/19 SOAP: Subjective: NAD comfortable in bed reports + BM's, has ambulated Receiving blood transfusion [] Objective: Vital Signs Temp 98.8 F 11/29/19 08:25 Pulse 81 11/29/19 08:25 Resp 18 11/29/19 08:25 BP 113/73 11/29/19 08:25 Pulse Ox 97 11/29/19 08:25 Intake & Output 11/28/19 11/29/19 11/29/19 18:59 06:59 18:59 Intake Total 1825 1005 Output Total 1390 790 Balance 435 215 Intake: IV Fluids 1149 1005 ABX - ZOSYN 110 LR 989 1005 NS (0.9%) 50 IVPB 110 ABX - ZOSYN 110 Oral 240 0 Packed Cells 326 Output: SHAN #1 40 40 Urine 800 750 [place] 550 Other: Estimated Void Medium # Bowel Movements 0 Estimated Stool Amount Small # Voids 1 Laboratory Tests 11/27/19 11/28/19 11/29/19 19:10 05:20 05:00 WBC 17.6 H 15.5 H 11.3 H Hgb 8.0 L 6.8 L 6.9 L PEX Gen: NAD Chest: CTAB CVS: RRR Abd: incision C/D/I, [place] in place, soft, ND/NT, hypoactive BS's, no guarding SHAN with serous output Ext: RLE calf soft non tender, LLE BKA [] Assessment:54 yo male POD 2 S/P Right hemicolectomy for perforated colon cancer. Receiving 1 unit PRBC's, Received 1 unit yesterday has epidural in place. ice chips Plan: Post Transfusion labs, advance to clears, continue ABX, Follow path, Epidural per anesthesia, encouraged deep breathing, IS, OOB Ambulate. Labs protonix IV convert to oral once full PO
[2019-11-29] MEDS: Pantoprazole TAB * 40 MG TAB PO SCH (11:24)
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
[2019-11-29] MEDS: OBEPIDURAL* 250 ML EPIDURAL SCH (19:02)
[2019-11-30] MEDS: ZOSYN 3.375 GM IVPB SCH ×8 (02:25→19:55)
[2019-11-30] MEDS ORDERED: Acetaminophen ADULT LIQ* 650 MG/20.3 ML UDC PO ONE (06:30)
[2019-11-30] MEDS ORDERED: oxyCODONE SR TAB(*) 10 MG TAB.SR PO ONE (06:30)
[2019-11-30 06:41] LABS: ABS Basophils 0.2 10^3/ul (0-0.2); ABS Eosinophils 0.3 10^3/ul (0-0.6); ABS Monocytes 0.6 10^3/ul (0-0.8); ABS Neutrophils 6.6 10^3/ul (1.5-7.7); Eosinophil % 2.8 %; Hematocrit 26 % (42-52); Hemoglobin 8.5 g/dL (14.0-18.0); Mean Corpuscular HGB Conc 32 g/dL (31-36); Mean Corpuscular Hemoglobin 23 pg (27-31); Mean Corpuscular Volume 71 fL (80-94); Mean Platelet Volume 6.7 fL (7.4-10.4); Platelet Count 487 10^3/uL (150-450); Red Blood Count 3.72 10^6 /uL (4.18-5.48); Red Cell Distribution Width 23 % (10-15); White Blood Count 10.6 10^3/uL (3.5-10.8)
[2019-11-30 06:56] LABS: BUN/Creatinine Ratio 3.4 (8-20); Calcium 8.1 mg/dL (8.6-10.3); EGFR African American 79.7 (>60); EGFR Non-African American 65.9 (>60); Magnesium 1.7 mg/dL (1.9-2.7); Potassium 3.7 mmol/L (3.5-5.0)
[2019-11-30] MEDS: Lactated Ringers 1000 ML Bag* 1,000 ML IV SCH ×2 (07:41→20:03)
[2019-11-30] MEDS ORDERED: Magnesium Sulfate 2 GM IV* 2 GM/50 ML BAG IVPB ONE (07:42)
[2019-11-30] MEDS: Pantoprazole TAB * 40 MG TAB PO SCH (09:45)
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
--- NOTE | 2019-11-30 12:37 | PN ---
Progress Note - Progress Note Date of Service: 11/30/19 SOAP: Subjective: NAD Comfortable in bed tolerated full liquids for bkfst + Flatus/BM - N/V [] Objective: Vital Signs Temp 98.2 F 11/30/19 11:02 Pulse 73 11/30/19 11:02 Resp 20 11/30/19 11:49 BP 110/72 11/30/19 11:02 Pulse Ox 99 11/30/19 11:02 Intake & Output 11/29/19 11/30/19 11/30/19 18:59 06:59 18:59 Intake Total 2268 1694 240 Output Total 1000 3240 1060 Balance 1268 -1546 -820 Intake: IV Fluids 1040 984 LR 980 984 NS (0.9%) 60 IVPB 200 210 ABX - ZOSYN 210 NS (0.9%) 200 Oral 720 500 240 Whole Blood 308 Output: SHAN #1 80 60 Urine 1000 3160 1000 Laboratory Tests 11/28/19 11/29/19 11/30/19 05:20 05:00 06:30 WBC 15.5 H 11.3 H 10.6 Hgb 6.8 L 6.9 L 8.5 L Hgb improved after PRBC's /2 PEX Gen: NAD Chest: CTAB CVS: RRR Abd: incision C/D/I, [place] in place, soft, ND/NT, + BS's, no guarding SHAN with serous output Ext: RLE calf soft non tender, LLE BKA [] Assessment:54 yo male POD 3 S/P Right hemicolectomy for perforated colon cancer. S/P 1 unit PRBC's 11/29/2019, Received 1 unit 11/28/[address] has been turned off. tolerating fulls. Plan: Follow labs, advanced to fulls this morning, continue ABX, Follow path, Epidural off per anesthesia, now on PO Analgesia, deep breathing encouraged, IS, OOB, Ambulate. Protonix IV converted to oral this morning. Oncology to see once pathology completed.
[2019-11-30] MEDS: Acetaminophen TAB* 325 MG PO PRN ×2 (12:53→21:03)
[2019-11-30] MEDS ORDERED: oxyCODONE TAB* 5 MG TAB PO ONE (14:10)
[2019-11-30] MEDS: oxyCODONE TAB* 5 MG TAB PO PRN (15:49)
[2019-11-30] MEDS: Heparin VIAL(*) 5000 UNITS/ML VIAL (FIVE THOUSAND) SUBCUT SCH ×2 (15:50→22:29)
--- NOTE | 2019-11-30 15:53 | PN ---
Progress Note - Progress Note Date of Service: 11/30/19 SOAP: Subjective: Patient seen and examined. Feeling well today. Epidural is out. Positive flatus, some burping. Small bowel movement. Incisional abdominal pain. Objective: Temp Pulse Resp BP Pulse Ox 98.4 F 65 18 112/67 99 11/30/19 15:40 11/30/19 15:40 11/30/19 15:40 11/30/19 15:40 11/30/19 15:40 Intake & Output 11/30/19 11/30/19 11/30/19 06:59 14:59 22:59 Intake Total 1089 480 Output Total 1750 1545 Balance -661 -1065 Alert and oriented 3, in no apparent distress Abdomen: Soft, mild distention, incisional tenderness. Staple line intact without drainage. No erythema or ecchymosis. SHAN serous output. No right lower extremity calf tenderness or edema Pathology pending Labs reviewed Patient status post two units packed RBCs transfused since surgery, one unit preoperatively Assessment: Postop day three right hemicolectomy for perforated colon cancer. Pathology pending. Antibiotics continued. Good GI function. No signs of sepsis. Plan: Advance diet Continue antibiotics and SHAN drain Follow-up pathology.
[2019-12-01] MEDS: oxyCODONE TAB* 5 MG TAB PO PRN ×4 (02:04→21:05)
[2019-12-01] MEDS: ZOSYN 3.375 GM IVPB SCH ×8 (02:43→21:03)
[2019-12-01] MEDS: Heparin VIAL(*) 5000 UNITS/ML VIAL (FIVE THOUSAND) SUBCUT SCH ×3 (05:27→22:31)
[2019-12-01 06:08] LABS: Calcium 8.2 mg/dL (8.6-10.3); Magnesium 1.9 mg/dL (1.9-2.7); Potassium 3.7 mmol/L (3.5-5.0)
[2019-12-01 06:11] LABS: ABS Basophils 0.1 10^3/ul (0-0.2); ABS Eosinophils 0.5 10^3/ul (0-0.6); ABS Monocytes 0.4 10^3/ul (0-0.8); ABS Neutrophils 5.7 10^3/ul (1.5-7.7); Eosinophil % 5.3 %; Hematocrit 28 % (42-52); Hemoglobin 8.8 g/dL (14.0-18.0); Lymphocyte % 23.4 %; Mean Corpuscular HGB Conc 31 g/dL (31-36); Mean Corpuscular Hemoglobin 23 pg (27-31); Mean Corpuscular Volume 72 fL (80-94); Mean Platelet Volume 6.9 fL (7.4-10.4); Platelet Count 421 10^3/uL (150-450); Red Blood Count 3.89 10^6 /uL (4.18-5.48); Red Cell Distribution Width 24 % (10-15); White Blood Count 8.7 10^3/uL (3.5-10.8)
[2019-12-01 06:14] LABS: BUN/Creatinine Ratio 4.2 (8-20); EGFR African American 77.4 (>60); EGFR Non-African American 63.9 (>60)
[2019-12-01] MEDS: Pantoprazole TAB * 40 MG TAB PO SCH (08:42)
--- NOTE | 2019-12-01 08:47 | PN ---
Progress Note - Progress Note Date of Service: 12/01/19 SOAP: Subjective: NAD C/O Incisional pain, + Flatus, + BM's, no Nausea, Vomiting [] Objective: Vital Signs Temp 98.5 F 12/01/19 08:18 Pulse 60 12/01/19 08:18 Resp 16 12/01/19 08:24 BP 119/72 12/01/19 08:18 Pulse Ox 98 12/01/19 08:18 Intake & Output 11/30/19 12/01/19 12/01/19 18:59 06:59 18:59 Intake Total 1080 4838 Output Total 1945 960 600 Balance -865 3878 -600 Intake: IV Fluids 3468 LR 3468 IVPB 210 ABX - ZOSYN 210 Oral 1080 1160 Output: SHAN #1 95 115 Urine 1850 845 600 Other: Date of Last Bowel 11/30/2019 Movement # Bowel Movements 1 3 Estimated Stool Amount Medium Medium Laboratory Tests 11/29/19 11/30/19 12/01/19 05:00 06:30 05:40 WBC 11.3 H 10.6 8.7 Hgb 6.9 L 8.5 L 8.8 L Hct 22 L 26 L 28 L 3 units PRBC's since admit, 1 pe op, 2 post op PEX Gen: NAD C/O Incisional pain Chest: CTAB CVS: RRR Abd: incision C/D/I, Nelson in place, soft, ND/NT, + BS's, no guarding SHAN with serous output Ext: RLE calf soft non tender, LLE BKA [] Assessment:54 yo male POD 3 S/P Right hemicolectomy for perforated colon cancer. S/P 1 unit PRBC's 11/23/2019 pre op, one unit on 11/28/2019, and on 2019, epidural has been d/c'd. Tolerating Low Residue diet Plan: Continue ABX, Follow labs, advanced to low residue 11/30/19, Await path, Epidural out now, PO Analgesia, deep breathing encouraged, IS, OOB, Ambulate. Protonix, Oncology to see once pathology completed. May need port prior to d/c
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
[2019-12-01] MEDS ORDERED: NS 0.9% 100 ML* 100 ML ONE ×2 (15:03)
[2019-12-01] MEDS: Iron Sucrose* 200 MG in NS 0.9% 100 ML* 100 ML IVPB SCH (16:16)
[2019-12-02] MEDS: ZOSYN 3.375 GM IVPB SCH ×8 (02:25→20:16)
[2019-12-02] MEDS: Heparin VIAL(*) 5000 UNITS/ML VIAL (FIVE THOUSAND) SUBCUT SCH ×3 (05:30→22:43)
[2019-12-02 06:22] LABS: BUN/Creatinine Ratio 5.1 (8-20); Calcium 8.2 mg/dL (8.6-10.3); EGFR African American 78.9 (>60); EGFR Non-African American 65.2 (>60); Magnesium 1.8 mg/dL (1.9-2.7); Phosphorus 3.5 mg/dL (2.5-5.0); Potassium 3.8 mmol/L (3.5-5.0)
[2019-12-02] MEDS ORDERED: Magnesium Sulfate 2 GM IV* 2 GM/50 ML BAG IVPB ONE (07:16)
[2019-12-02] MEDS: oxyCODONE TAB* 5 MG TAB PO PRN ×3 (08:10→20:23)
[2019-12-02] MEDS: Pantoprazole TAB * 40 MG TAB PO SCH (08:10)
--- NOTE | 2019-12-02 08:26 | PN ---
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 [place] in, SHAN remains Denies significant pain Pathology Medullary carcinoma, Poorly differentiated, T3N1 with perforation 10/24 /nodes + 2 mm, radial margin + Objective: Alert and conversant Abdomen soft Neuro nonfocal [place] in place as well as SHAN Vital Signs - 8 hr 12/02/19 12/02/19 12/02/19 04:02 07:24 08:10 Temperature 98.4 F 98.8 F Pulse Rate 70 68 Respiratory 17 17 18 Rate Blood Pressure 114/68 128/73 (mmHg) O2 Sat by Pulse 97 97 Oximetry Laboratory Results - last 24 hr 12/02/19 05:40 Sodium 138 Potassium 3.8 Chloride 108 Carbon Dioxide 25 Anion Gap 5 BUN 6 Creatinine 1.17 Est GFR ( Amer) 78.9 Est GFR (Non-Af Amer) 65.2 BUN/Creatinine Ratio 5.1 L Glucose 101 H Calcium 8.2 L Phosphorus 3.5 Magnesium 1.8 L Intake and Output Last 24 Hours 11/30/19 12/01/19 12/02/19 12/03/19 06:59 06:59 06:59 06:59 Intake Total 3962 5918 2460 Output Total 4240 2905 2220 40 Balance -278 3013 240 -40 Intake: IV Fluids 2023 3468 110 ABX - ZOSYN 110 LR 1964 3468 NS (0.9%) 60 IVPB 410 210 110 ABX - ZOSYN 210 210 110 NS (0.9%) 200 Oral 1220 2240 2240 Whole Blood 308 Output: SHAN #1 80 210 65 40 Urine 4160 2695 2155 Other: Estimated Void Medium Date of Last Bowel 11/30/2019 Movement # Bowel Movements 3 1 Estimated Stool Amount Medium Small Other Amount Description 1 BM, 1 Lg BM # Voids 1 Heparin Sodium (Porcine) (Heparin Flush Picc/Ml/Cvc(*)) 1 ml FLUSH 0600,1800 [facility]; Protocol Last Admin: 12/02/19 05:32 Dose: 2 ml Heparin Sodium (Porcine) (Heparin Vial(*)) 5,000 units SUBCUT Q8HR [facility] Last Admin: 12/02/19 05:30 Dose: 5,000 units Piperacillin Sod/Tazobactam (Sod 3.375 gm/ Sodium Chloride) 100 mls @ 200 mls/ hr IVPB Q6H [facility] Last Admin: 12/02/19 08:07 Dose: 200 mls/hr Iron Sucrose 200 mg/ Sodium (Chloride) 110 mls @ 440 mls/hr IVPB DAILY [facility] Stop: 12/05/19 09:14 Last Admin: 12/01/19 16:16 Dose: 440 mls/hr Naloxone HCl (Narcan*) 0.08 mg IV PUSH .Q2MIN PRN PRN Reason: OVERSEDATION Oxycodone HCl (Roxycodone Tab*) 5 mg PO Q4H PRN PRN Reason: PAIN - SEVERE Last Admin: 12/02/19 08:10 Dose: 5 mg Pantoprazole Sodium (Protonix Tab*) 40 mg PO DAILY [facility] Last Admin: 12/02/19 08:10 Dose: 40 mg Pharmacy Consult (Zosyn Per Pharmacy*) 1 note FOLLOW UP .ZOSYN PER PHARMACY [facility] Assessment: 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 Reviewed that medullary carcinomas are an unusual form of colorectal malignancy and adjuvant treatment options are typically extrapolated to colonic adenocarcinomas. I would recommend adjuvant FOLFOX for 6 months or adjuvant CAPEOX for 6 months, I would not favor truncating adjuvant therapy to three months given the under representation of medullary carcinomas in adjuvant studies exploring less adjuvant therapy. Also Radiation Oncology consultation given the positive radial margin. It may however be difficult to localize strong given his clinical presentation Genetic counselling will also be considered. It should be noted that there is a significant increased likelihood of MSIH/Unstable tumors in patient's with medullary carcinomas . He notes that he will soon be in the [facility] and that he desires care in that location. Would therefore recommend Radiation and Oncology consultations at the . Will be available as needed
--- NOTE | 2019-12-02 09:09 | PN ---
Progress Note - Progress Note Date of Service: 12/02/19 SOAP: Subjective: NAD C/O Incisional pain + BM, no nausea Tolerating Low Res Diet and Ensure [] Objective: Vital Signs Temp 98.8 F 12/02/19 07:24 Pulse 68 12/02/19 07:24 Resp 18 12/02/19 08:10 BP 128/73 12/02/19 07:24 Pulse Ox 97 12/02/19 07:24 Intake & Output 12/01/19 12/02/19 12/02/19 18:59 06:59 18:59 Intake Total 960 1500 Output Total 1460 760 40 Balance -500 740 -40 Intake: IV Fluids 110 ABX - ZOSYN 110 IVPB 110 ABX - ZOSYN 110 Oral 740 1500 Output: SHAN #1 60 5 40 Urine 1400 755 Other: Estimated Void Medium Medium # Bowel Movements 0 1 Estimated Stool Amount Medium Small Other Amount Description 1 BM, 1 Lg BM # Voids 1 1 Laboratory Tests 12/01/19 12/02/19 05:40 05:40 WBC 8.7 Hgb 8.8 L Hct 28 L Plt Count 421 Sodium 138 Potassium 3.8 Chloride 108 Carbon Dioxide 25 Anion Gap 5 BUN 6 Creatinine 1.17 Est GFR ( Amer) 78.9 Glucose 101 H Magnesium 1.8 L Patient Name: MARLEEN GAR [id number] Pathology Number: [id number] [facility].Rec. #: [id number] Collection Date: 11/27/19 Acct. Number#: [id number] Received Date: 11/27/19 : 1965 Location: [facility] Gender: M Status: SOUT Submitting Physician: Chandana Nicolas MD Other Physician: Rashida Gutierrez MD FINAL DIAGNOSIS Ileocecum, resection: -- Invasive adenocarcinoma of colon, poorly differentiated (medullary) type with : Histologic grade: Poorly differentiated (G3). Location: Cecum. Configuration: Exophytic. Size: 7.3 cm. Extent of invasion: Tumor invades into pericolic fat . Lymphovascular (small vessel) invasion: Not seen. Venous (large vessel) invasion: Not seen. Perineural invasion: Present. Peritumoral lymphocytic response: Moderate. Growth pattern at periphery: Infiltrative. Margins: Proximal: Clear. Distal: Clear. Radial (circumferential): Present at radial margin with perforation.. Lymph nodes: Metastatic adenocarcinoma involving one of twenty six lymph nodes (10/24). --Positive tumor focus measures 2 mm. --No extracapsular extension identified. Other findings: Vermiform appendix with acute appendicitis. pTNM histopathologic stage: [id number] N/A. PEX GEN: NAD CHEST: CTAB CVS: RRR EXT: R Calf soft non tender, L BKA [] Assessment: POD 5 S/P Right hemicolectomy for perforated colon cancer, pre op anemia, 1 Unit PRBC's pre op, 2 units post op tolerating diet, pathology now complete. Low Mag [] Plan: Patient reports desire of Chemotherapy via Port, will need Port Placed. Replace mag, Follow Oncology recommendations, Ambulate, Deep Breathing, SCD when in bed. D/W Dr Nicolas []
[2019-12-02] MEDS: Iron Sucrose* 200 MG in NS 0.9% 100 ML* 100 ML IVPB SCH (10:56)
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
[2019-12-03] MEDS: oxyCODONE TAB* 5 MG TAB PO PRN ×3 (02:38→13:43)
[2019-12-03 07:12] LABS: ABS Basophils 0.1 10^3/ul (0-0.2); ABS Eosinophils 0.4 10^3/ul (0-0.6); ABS Lymphocytes 2.7 10^3/ul (1.0-4.8); ABS Monocytes 0.5 10^3/ul (0-0.8); ABS Neutrophils 7.8 10^3/ul (1.5-7.7); Eosinophil % 3.4 %; Hematocrit 32 % (42-52); Hemoglobin 10.1 g/dL (14.0-18.0); Lymphocyte % 23.4 %; Mean Corpuscular HGB Conc 31 g/dL (31-36); Mean Corpuscular Hemoglobin 23 pg (27-31); Mean Corpuscular Volume 73 fL (80-94); Mean Platelet Volume 7.1 fL (7.4-10.4); Nucleated Red Blood Cells % 0.1; Platelet Count 605 10^3/uL (150-450); Red Blood Count 4.43 10^6 /uL (4.18-5.48); Red Cell Distribution Width 25 % (10-15); White Blood Count 11.5 10^3/uL (3.5-10.8)
[2019-12-03] MEDS: Heparin VIAL(*) 5000 UNITS/ML VIAL (FIVE THOUSAND) SUBCUT SCH ×2 (07:55→13:44)
[2019-12-03] MEDS: Pantoprazole TAB * 40 MG TAB PO SCH (07:55)
[2019-12-03] MEDS: ZOSYN 3.375 GM IVPB SCH ×2 (08:20)
[2019-12-03] MEDS ORDERED: fentaNYL* 50 MCG/ML 2 ML VIAL (100 MCG VIAL) ONE ×2 (09:01→10:42)
[2019-12-03] MEDS ORDERED: Midazolam* 1 MG/ML 5 ML VIAL (5 MG) ONE (09:01)
[2019-12-03] MEDS ORDERED: Lidocaine 1% INJ* 10 MG/ML 30 ML SDV ONE (10:07)
--- NOTE | 2019-12-03 10:16 | PN ---
Progress Note - Progress Note Date of Service: 12/03/19 Note: No complaints this morning. Central line accidentally removed last night. Has been NPO for port placement this morning. Temp Pulse Resp BP Pulse Ox 98.4 F 88 16 101/67 95 12/03/19 09:21 12/03/19 09:21 12/03/19 09:21 12/03/19 09:21 12/03/19 09:21 No acute distress. Breathing comfortably on room air. Alert and oriented x3. A&P 54M with colon medullary carcinoma. Discussed procedure and risks, including but not limited to bleeding, infection, pneumothorax, or arrhythmias. -Port placement today in OR.
[2019-12-03] MEDS ORDERED: ceFAZolin 2 GM PREMIX in ORs 2 GM/50 ML BAG ONE (10:19)
[2019-12-03] MEDS ORDERED: ceFAZolin 2 GM in NS PREMIX(*) 2 GM/100 ML BAG IVPB ONE (10:19)
[2019-12-03] MEDS ORDERED: ceFAZolin 2 GM PREMIX in ORs 2 GM/50 ML BAG IVPB ONE ×2 (10:43→10:44)
[2019-12-03] MEDS ORDERED: Lidocaine 2% PF * 5 ML VIAL ONE (10:47)
[2019-12-03] MEDS ORDERED: Propofol* 10 MG/ML 20 ML BTL ONE (10:47)
[2019-12-03] MEDS ORDERED: Ondansetron INJ* 2 MG/ML VIAL ONE (10:47)
[2019-12-03] MEDS ORDERED: Naloxone* 0.4 MG/ML 1 ML VIAL IV PRN (11:26)
[2019-12-03] MEDS ORDERED: Acetaminophen TAB* 325 MG PO PRN (11:26)
--- NOTE | 2019-12-03 11:45 | BRIEFOPN ---
Brief Operative/Procedure Note - Operation Details Pre-Op Diagnosis: Colon cancer Post-Op Diagnosis: Same Procedures: Port placement Surgeon(s)/Proceduralists: Vero Berger MD Anesthesia: MAC Estimated Blood Loss: Minimal Findings: Successful placement of 8Fr PowerPort via R subclavian vein Specimen(s)/Culture(s) Description: None Complications: None
[2019-12-03] MEDS: Iron Sucrose* 200 MG in NS 0.9% 100 ML* 100 ML IVPB SCH (14:52)
[2019-12-03 16:08] VITALS: BP 107/67
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
--- NOTE | 2019-12-04 07:38 | OP ---
Operative Report - Blank - Operative Report Date of Operation: 12/03/19 Note: PRE-OP DX: Colon cancer POST-OP DX: Same PROCEDURE: Port placement SURGEON: Vero Berger MD ANESTHESIA: MAC EBL: Minimal FINDINGS: Successful placement of 8Fr PowerPort via right subclavian vein. INDICATION: Flakito Bowles is a 54 year-old man who was admitted for anemia and a colon mass. He underwent colon resection on 11/27/[address] Nicolas. Pathology showed medullary carcinoma. His post-operative course was uneventful. He was followed by oncology who recommended chemotherapy. I discussed port placement with the patient. Risks were discussed including but not limited to bleeding, infection, arrhythmia, or pneumothorax. DESCRIPTTION: The patient was brought to the OR and placed in the supine position on the OR table. SCDs were placed. The patient was warmed. He received cefazolin 2g. MAC anesthesia was administered. The right neck and upper chest were prepped and draped in the usual sterile fashion. A timeout confirming the patient's name, date of , and procedure was called. Lidocaine 1% was injected inferior and deep to the right clavicle. The vein was cannulated with a needle. The wire was advanced through the needle, and the needle was removed. Fluoroscopy confirmed correct placement of the wire in the superior vena cava. Next, lidocaine 1% was injected into the skin at the planned port site. A transverse incision was made with a scalpel and carried down to the fascia with electrocautery. A pocket under the skin was made for the port using blunt dissection and electrocautery. A stab incision was made at the wire. The catheter was then tunneled through the subcutaneous tissue from the wire to the pocket. The vein was dilated, and then the pull-away sheath was placed into the vein. Fluoroscopy confirmed placement of the sheath in the superior vena cava. The catheter was advanced into the sheath as the sheath was pulled away and out. Under fluoroscopy, the catheter was pulled back until the tip was at the cavoatrial junction. The catheter was then cut to the appropriate length. The catheter was connected to the port stem, and the catheter lock advanced. The port was placed into the subcutaneous pocket and sutured to the fascia using 3-0 Prolene on each side. A Darling needle was used to draw back blood and flush the port. A total of 5 mL of heparin 5000 units/5 mL was then flushed through the port and catheter. The subcutaneous pocket was closed with interrupted 3-0 Vicryl in the deep dermal layer. The skin was closed with a running 4-0 monocryl. The stab incision was closed with 4-0 monocryl. Steri-Strips were placed over both incisions. The chest incision was covered with sterile gauze and Tegaderm. Needle and sponge counts were correct. The patient tolerated the procedure well. He was brought to recovery in stable condition. A chest x-ray in recovery confirmed correct placement of the port and catheter in the superior vena cava without complication.
--- NOTE | 2019-12-06 19:46 | PN ---
Progress Note - Progress Note Date of Service: 12/03/19 Note: Surgery Progress (late entry; patient seen and examined 12/03/19): S: POD#6. Doing well, s/p port placement by Dr. Berger earlier today. Angie reg diet ; pain controlled w/ oxycodone 5 mg. Having regular BMs. Ambulating well. O: afeb VSS Heart: reg Lungs: clear Abd: Right horizontal incision clean and dry; jose intact; SHAN site clean and dry. Extr: s/p L BKA; right LE w/o edema or tenderness A: s/p right colectomy P: discussed w/ Dr. Nicolas: ok for d/c back to [facility]; instructions reviewed; RTO next wk for staple removal (12/09/19)
--- NOTE | 2019-12-07 14:48 | DS ---
CC: Dr. Wilmar Bower, Gastroenterology; Dr. Derrick Brito, Hematology/Oncology ; Ivis Johnson NP * DISCHARGE SUMMARY: DATE OF ADMISSION: 11/22/19 DATE OF DISCHARGE: 12/03/19 ATTENDING SURGEON: Dr. Chandana Nicolas.* (DICTATED BY ROLLY ZAVALA) HOSPITAL COURSE: Please refer to admission history and physical and the following consults; Gastroenterology (Dr. Bower), Surgery (ROLLY Zavala and Dr. Nicolas), Hematology/Oncology (Dr. Derrick Brito). Briefly, the patient was admitted with right-sided abdominal pain, microcytic anemia, and a right colon mass by CT scan. He underwent colonoscopy with Dr. Bower on 11/23 with biopsy of an ulcerated mass in the ascending colon, which by pathology was adenocarcinoma (see separate pathology report). The patient was taken to the operating room on 11/27/[address] Nicolas. Findings at the time of surgery included a large inflammatory mass involving the right colon with evidence of perforation. A right colectomy with primary ileocolic anastomosis was performed and a Wade-Morel drain was placed. The patient was covered with IV Zosyn until the date of discharge. It was not felt that additional antibiotics were needed. The patient otherwise had an uneventful postoperative course with good pain control the first couple of days with epidural and thereafter with oral pain medication. As of the morning of discharge, he was tolerating a regular diet (low-residue) and having normal bowel movements. His pain was controlled with 5 mg oxycodone. Chemotherapy was recommended and the patient was agreeable to have a PowerPort placed, which was done by Dr. Berger on 12/03/19. The Wade-Morel drain, which had been placed at the time of surgery, was removed at that time. The patient has a followup with our office on 12/09/19 for removal of jose. DISCHARGE CONDITION: He is discharged back to [facility] in good condition. ROLLY ZAVALA [id number]/[facility] #: [id number] [facility]
== END 2019-12-03 16:25 | DRG 710 ==
LOC: ED 12:56 → MEDTELE 19:35 → EEVIPCON 19:35 → SSU 11-27 15:16
PROVIDERS: ADMIT Internal Medicine; ATTEND Internal Medicine
PROC: 30233N1 Transfusion of Nonautologous Red Blood Cells into Peripheral Vein, Percutaneous Approach (ICD-10-PCS; 2019-11-23)
PROC: 0DBF8ZX Excision of Right Large Intestine, Via Natural or Artificial Opening Endoscopic, Diagnostic (ICD-10-PCS; 2019-11-26)
PROC: 0DTF0ZZ Resection of Right Large Intestine, Open Approach (ICD-10-PCS; principal; 2019-11-27 08:00)
PROC: 0JH63WZ Insertion of Totally Implantable Vascular Access Device into Chest Subcutaneous Tissue and Fascia, Percutaneous Approach (ICD-10-PCS; 2019-12-03)
PROC: 05H533Z Insertion of Infusion Device into Right Subclavian Vein, Percutaneous Approach (ICD-10-PCS; 2019-12-03)
PROC: B516ZZA Fluoroscopy of Right Subclavian Vein, Guidance (ICD-10-PCS; 2019-12-03)
DX: A41.9 Sepsis, unspecified organism (principal); K63.1 Perforation of intestine (nontraumatic); C18.2 Malignant neoplasm of ascending colon; D62 Acute posthemorrhagic anemia; K92.1 Melena; R79.89 Other specified abnormal findings of blood chemistry; F17.210 Nicotine dependence, cigarettes, uncomplicated; D47.3 Essential (hemorrhagic) thrombocythemia; K52.9 Noninfective gastroenteritis and colitis, unspecified; Z89.512 Acquired absence of left leg below knee; Z28.21 Immunization not carried out because of patient refusal
CPT/HCPCS: 36415; 71045; 71046; 74177; 76000; 80048; 80053; 81003; 82270; 82378; 82728; 83540; 83550; 83605; 83690; 83735; 84100; 85014; 85018; 85025; 85060; 85610; 85730; 86140; 86850; 86900; 86901; 86922; 87040; 87045; 87046; 87077; 87899; 88305; 88309; 88341; 88342; 93306; 96361; 96374; 99156; 99157; 99223; 99232; 99233; 99284; A9270-GY; C1776; C1788; C8929; J0690; J1100; J1335; J1642; J1644; J1756; J1885; J2001; J2250; J2270; J2405; J2543; J2704; J2765; J3010; J3475; J3490; P9040; Q9967